=== PATIENT | male | born 1990 | race Caucasian/White ===

== ENCOUNTER 2016-08-27 12:56 | Emergency (ER) | payer OTHER ==
[~2016-08-27 12:56] MED LIST: BENTYL; CIPRO; CULTURELLE1 CA1 PO; DELTASONE20 MG PO; FLAGYL500 MG PO; IBUPROFEN200 M1 PO; LEVAQUIN500 MG PO; MIRALAX17 G1 PO; NORCO 5-325 TA1 EACH PO; PENTASA500 MG PO; PREDNISONE5 MG PO; TYLENOL325 MG PO; VITAMIN D5000 UNIT PO; [UNRECOGNIZED DRUG - OTHER] PO
[2016-08-27 14:22] LABS: BASO % 0.4 % (0-2); EOS % 0.8 % (0-7); EOSINOPHIL ABSOLUTE COUNT 0.1 tho/cmm (0.0-0.7); HCT-HEMATOCRIT 43.6 % (36.0-53.5); HGB-HEMOGLOBIN 15.1 gm/dl (13.5-17.0); IMMATURE GRANULOCYTES ABSOLUTE 0.02 tho/cmm (0-0.03); IMMATURE GRANULOCYTES PERCENT 0.3 % (0-0.3); LYMPH % 11.4 % (20-45); LYMPH ABSOLUTE COUNT 0.9 tho/cmm (0.8-4.5); MCH (MEAN CORPUSCULAR HGB) 29.3 pg (28.0-32.0); MCHC MEAN CORPUSCULAR HGB CONC 34.6 % (32.0-36.0); MCV (MEAN CELL VOLUME) 84.7 fl (82.0-96.0); MEAN PLATELET VOLUME 11.4 cmc (9.4-12.4); MONO % 7.4 % (0-12); MONOCYTE ABSOLUTE COUNT 0.6 tho/cmm (0.0-1.2); NEUTROPHIL ABSOLUTE COUNT 6.4 tho/cmm (1.6-8.0); NEUTROPHIL-AUTOMATED 6.4 tho/cmm (1.6-8.0); NEUTROPHILS % 79.7 % (40-80); PLATELET COUNT 179 tho/cmm (150-450); RED BLOOD COUNT 5.15 mil/cmm (4.40-5.70); RED CELL DISTRIBUTION WIDTH 12.4 % (12.4-16.4)
[2016-08-27 14:33] LABS: ANION GAP 14 mmol/L (0-20); BLOOD UREA NITROGEN 19 mg/dl (6-24); CALCIUM 8.8 mg/dl (8.5-10.5); CARBON DIOXIDE-VENOUS 26 mmol/L (22-32); CHLORIDE 105 mmol/l (96-110); CREATININE 1.03 mg/dl (0.60-1.30); GLUCOSE 85 mg/dL (70-110); SODIUM 141 mmol/L (135-145); eGFR VALUE FOR BLACK >90 mL/Min
[2016-08-27] MEDS ORDERED: NORCO 5/3251 TAB PO (15:38)
[2016-08-27] MEDS ORDERED: ZOFRAN ODT4 MG PO (15:38)
[2016-12-18] MEDS ORDERED: REMICADE100 MG IV (05:40)
[2016-12-19] MEDS ORDERED: CIPRO500 M2 PO (11:05)
[2016-12-19] MEDS ORDERED: FLAGYL500 M1 PO (11:06)
[2016-12-19] MEDS ORDERED: PREDNISONE10 M1 PO (11:06)
== END 2016-08-27 16:01 ==
LOC: EDMED 12:56
PROVIDERS: Emergency Medicine
DX: K50.90 Crohn's disease, unspecified, without complications (principal); Z79.899 Other long term (current) drug therapy; Z98.890 Other specified postprocedural states
CPT/HCPCS: J1170; J2405; J7030